=== PATIENT | female | born 1995 | race African-American/Black ===

== ENCOUNTER 2019-02-21 16:53 | Emergency (ER) | payer OTHER ==
[~2019-02-21] VITALS: Ht 162.6 cm; Wt 70.3 kg
[2019-02-21 17:10] VITALS: BP 116/64
--- NOTE | 2019-02-21 17:10 | NUR ---
ED Nurse Note: pt walked in due to nausea and 8/10 lower back pain started 3 days ago, pt asking for test, cary hopkins aware, will continue to monitor
--- NOTE | 2019-02-21 17:22 | NUR ---
ED Nurse Note: pt able to give urine sample and was sent to lab.
[2019-02-21 17:32] LABS: APPEARANCE,URINE CLEAR; BILIRUBIN, URINE NEGATIVE (NEGATIVE); GLUCOSE, URINE (UA) NEGATIVE (NEGATIVE); KETONES,URINE 1+ (NEGATIVE); LEUKOCYTE ESTERASE ,URINE 1+ (NEGATIVE); NITRITE,URINE NEGATIVE (NEGATIVE); PH,URINE 6 (4.5-8.0); PROTEIN,URINE NEGATIVE (NEGATIVE); UROBILINOGEN,URINE 1 MG/DL (0.0-1.0)
[2019-02-21 17:37] LABS: COLOR,URINE YELLOW
--- NOTE | 2019-02-21 17:48 | Emergency Room Report ---
History of Present Illness General Chief Complaint: General Complaint Source: Patient Present Illness HPI 23 YO female presents to the ED c/o nausea x 2 days as well as cough at night x 1 week. pt. is suspicious for , states her LMP was 1 week ago. She states her cycle was 3 days late, and states she had chemical 4 months ago. denies fevers or chills. Denies vomiting. denies constipation or diarrhea. pt. reports 2 days ago feeling a midsternal burning sensation. Denies hx of GERD. Denies abdominal pain or tenderness. pt. reports low back pain. Allergies: Coded Allergies: No Known Allergies (Unverified , 02/21/19) Patient History Past Medical History: see triage record Past Surgical History: none Pertinent Family History: none Last Menstrual Period: 02/13 Reviewed Nursing Documentation: PMH: Agreed; PSxH: Agreed Nursing Documentation-PMH Past Medical History: No Stated History Review of Systems All Other Systems: negative except mentioned in HPI Physical Exam Vital Signs Date Time Temp Pulse Resp B/P (MAP) Pulse Ox O2 Delivery O2 Flow Rate FiO2 02/21/19 17:01 99.3 88 20 116/64 (81) 100 Room Air Sp02 EP Interpretation: reviewed, normal General Appearance: no apparent distress, alert, GCS 15, non-toxic Head: normocephalic, atraumatic Eyes: bilateral eye normal inspection, bilateral eye PERRL ENT: hearing grossly normal, normal voice Neck: full range of motion Respiratory: lungs clear, normal breath sounds, no wheezing, speaking full sentences Cardiovascular #1: regular rate, rhythm Gastrointestinal: normal bowel sounds, non tender, soft, non-distended, no guarding Genitourinary: normal inspection, no CVA tenderness Musculoskeletal: back normal, gait/station normal, normal range of motion, non- tender Neurologic: alert, oriented x3, responsive, motor strength/tone normal, sensory intact, normal gait, speech normal, grossly normal Psychiatric: judgement/insight normal Skin: normal color, no rash, warm/dry, well hydrated Lymphatic: no adenopathy Medical Decision Making PA Attestation Dr. lozano is my supervising Physician whom patient management has been discussed with. Diagnostic Impression: Primary Impression: Nausea Additional Impression: GERD (gastroesophageal reflux disease) Qualified Codes: K21.9 - Gastro-esophageal reflux disease without esophagitis ER Course 23 YO female presents to the ED c/o nausea x 2 days as well as cough at night x 1 week. pt. is suspicious for , states her LMP was 1 week ago. She states her cycle was 3 days late, and states she had chemical 4 months ago. denies fevers or chills. Denies vomiting. denies constipation or diarrhea. pt. reports 2 days ago feeling a midsternal burning sensation. Denies hx of GERD. Denies abdominal pain or tenderness. pt. reports low back pain. Ddx considered but are not limited to UTI, , GERD, URI, gastritis just to name a few. Vital signs: are WNL, pt. is afebrile H&PE are most consistent with possible GERD --pt. is non-toxic in appearance, NAD. PE does not suggest an acute abdomen. ORDERS: -UA: No evidence of infection -URINE HCG: Negative ED INTERVENTIONS: -PO Pepcid - DISCHARGE: At this time pt. is stable for d/c to home. Will provide printed patient care instructions, and any necessary prescriptions. Care plan and follow up instructions have been discussed with the patient prior to discharge. Labs Test 02/21/19 17:00 Urine Color Yellow Urine Appearance Clear Urine pH 6 (4.5-8.0) Urine Specific [place] 1.025 (1.005-1.035) Urine Protein Negative (NEGATIVE) Urine Glucose (UA) Negative (NEGATIVE) Urine Ketones 1+ (NEGATIVE) Urine Blood Negative (NEGATIVE) Urine Nitrite Negative (NEGATIVE) Urine Bilirubin Negative (NEGATIVE) Urine Urobilinogen 1 MG/DL (0.0-1.0) Urine Leukocyte Esterase 1+ (NEGATIVE) Urine RBC 0-2 /HPF (0 - 2) Urine WBC 0-2 /HPF (0 - 2) Urine Squamous Epithelial Cells Few /LPF (NONE/OCC) Urine Bacteria Few /HPF (NONE) Urine HCG, Qualitative Negative (NEGATIVE) Last Vital Signs Date Time Temp Pulse Resp B/P (MAP) Pulse Ox O2 Delivery O2 Flow Rate FiO2 02/21/19 17:10 88 20 Room Air 02/21/19 17:10 99.3 116/64 100 Status: improved Disposition: HOME, SELF-CARE Condition: Stable Scripts Ondansetron Odt* (ZOFRAN ODT*) 4 Mg Tab.rapdis 4 MG BC EVERY 8 HOURS PRN for Nausea & Vomiting, #10 TAB 0 Refills Prov: Sherly Garcia 02/21/19 Ranitidine Hcl* (ZANTAC*) 150 Mg Tablet 150 MG ORAL TWICE A DAY for 10 Days, #20 TAB Prov: Sherly Garcia 02/21/19 Patient Instructions: Cough, Adult, [id number], Food Choices for Gastroesophageal Reflux Disease, Adult, [id number] Additional Instructions: Take medications as directed. Follow up with a Primary Care Provider in 3-5 days, even if your symptoms have resolved. Return sooner to ED if new symptoms occur, or current symptoms become worse. - Please note that this Emergency Department Report was dictated using [employer] technology software, occasionally this can lead to erroneous entry secondary to interpretation by the dictation equipment. Sherly Garcia February 21, 2019 17:48
[2019-02-21] MEDS ORDERED: ZANTAC150 MG ORAL (17:49)
[2019-02-21] MEDS ORDERED: ONDANSETRON ODT4 MG BC (17:49)
[2019-02-21 18:04] VITALS: BP 116/64
--- NOTE | 2019-02-21 18:04 | NUR ---
ER DISCHARGE NOTE: Patient is cleared to be discharged per ERMD, pt is aox4, on room air, with stable vital signs. pt was given dc and prescription instructions, pt was able to verbalize understanding, pt id band removed without complications. pt is able to ambulate with steady gait. pt took all belongings.
== END 2019-02-21 18:04 | disposition home or self-care (01) ==
LOC: EMR 17:40
DX: R11.0 Nausea (principal); K21.9 Gastro-esophageal reflux disease without esophagitis; R05 Cough; M54.5 Low back pain
CPT/HCPCS: 81003; 81025; 99283